=== PATIENT | female | born 1970 | race Caucasian/White ===

== ENCOUNTER → 2017-01-16 16:48 | Outpatient (CLI) | payer OTHER ==
[2011-06-20 11:14] VITALS: BMI 33.2
== END | disposition home or self-care (01) ==
LOC: D.MAMMO 08:00
DX: Z12.31 Encounter for screening mammogram for malignant neoplasm of breast (principal)

== ENCOUNTER → 2018-01-28 17:00 | Outpatient (CLI) | payer OTHER ==
[2011-06-20 11:14] VITALS: BMI 33.2
== END | disposition home or self-care (01) ==
LOC: D.MAMMO 16:15
DX: Z12.31 Encounter for screening mammogram for malignant neoplasm of breast (principal)

== ENCOUNTER → 2019-02-03 15:51 | Outpatient (CLI) | payer OTHER | END | disposition home or self-care (01) | LOC: D.MAMMO 15:51 | DX: I10 Essential (primary) hypertension (principal) ==

== ENCOUNTER 2020-03-01 09:00 | Outpatient (CLI) | payer OTHER ==
[2011-06-20 11:14] VITALS: BMI 33.2
== END 2020-03-01 10:00 | disposition home or self-care (01) ==
LOC: D.MAMMO 09:00
PROVIDERS: ATTEND Family Medicine
DX: Z12.31 Encounter for screening mammogram for malignant neoplasm of breast (principal)